=== PATIENT | male | born 1980 | race Caucasian/White ===

== ENCOUNTER 2018-01-20 20:12 | Inpatient (IN) | payer MEDICAID ==
[~2018-01-20] VITALS: Ht 190.5 cm; Wt 113.9 kg
[~2018-01-20 20:12] MED LIST: ASPI-1009 PO; ENOX40SY7 SUBCUT; IBUP-1574 PO; WARF5TAB PO
[2018-01-20] MEDS ORDERED: morphine 4 MG/ML inj SYRINge IV ONE (20:45)
[2018-01-20] MEDS ORDERED: vancomycin inj 1,000 MG in normal saline 250ml IV soln 250 ML IV ONE (20:45)
[2018-01-20] MEDS ORDERED: ondansetron/PF 4mg/2ml inj IV ONE (20:45)
[2018-01-20] MEDS ORDERED: CefTRIAXone/D5W-Rocephin 1gm 50 ML IV ONE (20:45)
[2018-01-20] MEDS ORDERED: normal saline 1000ML IV soln IVB ONE (20:45)
[2018-01-20] MEDS ORDERED: vancomycin/NS 1 GM ADD-VANTAGE 250 ML X 1 DOSE IV ONE (20:55)
[2018-01-20] MEDS ORDERED: temazepam 15mg capsule PO PRN (21:00)
[2018-01-20 21:17] LABS: BASOPHILS % (AUTO) 0.3 % (0-1); EOSINOPHILS # (AUTO) 0.2 X10'3 (0-0.9); EOSINOPHILS % (AUTO) 1.6 % (0-6); HEMATOCRIT 42.6 % (42.0-52.0); HEMOGLOBIN 14.8 g/dl (14.0-17.9); LYMPHOCYTES % (AUTO) 16.8 % (21-51); MEAN CORPUSCULAR HEMOGLOBIN 30.5 PG (27.0-31.0); MEAN CORPUSCULAR HGB CONC 34.8 % (33.0-36.5); MEAN CORPUSCULAR VOLUME 87.8 FL (78-98); MEAN PLATELET VOLUME 7.6 FL (7.4-10.4); MONOCYTES # (AUTO) 0.5 X10'3 (0-0.9); MONOCYTES % (AUTO) 4.5 % (2-12); NEUTROPHILS # (AUTO) 9.1 X10'3 (1.8-7.7); NEUTROPHILS % (AUTO) 76.8 % (42-75); PLATELET COUNT 244 X10'3 (140-440); RED BLOOD COUNT 4.85 X10'6 (4.70-6.10); RED CELL DISTRIBUTION WIDTH 14.1 % (11.5-14.5); WHITE BLOOD COUNT 11.9 X10'3 (4.5-11.0)
[2018-01-20 21:24] LABS: PARTIAL THROMBOPLASTIN TIME 35 SECONDS (22-32); PROTHROMBIN TIME 10.5 SECONDS (9.0-12.0)
[2018-01-20 21:28] LABS: ALANINE AMINOTRANSFERASE 29 U/L (12-78); ALBUMIN 4.2 G/DL (3.4-5.0); ALBUMIN/GLOBULIN RATIO 1.2 (1.1-1.5); ALKALINE PHOSPHATASE 91 IU/L (46-116); ANION GAP 7 (8-16); ASPARTATE AMINO TRANSFERASE 17 U/L (10-37); BILIRUBIN,TOTAL 0.5 MG/DL (0.1-1.0); BLOOD UREA NITROGEN 17 MG/DL (7-18); BUN/CREATININE RATIO 17.7 (5.4-32.0); CALCIUM 9.4 MG/DL (8.5-10.1); CHLORIDE 104 MMOL/L (99-107); CREATININE 0.96 MG/DL (0.60-1.10); GLUCOSE 101 MG/DL (70-104); LIPASE 64 U/L (73-393); SODIUM 141 MMOL/L (135-145); TOTAL PROTEIN 7.8 G/DL (6.4-8.2); eGFR 88 ML/MIN
[2018-01-20] MEDS ORDERED: ENOX100S3 SQ (23:02)
[2018-01-20] MEDS ORDERED: DOXY100C2 PO (23:02)
[2018-01-20] MEDS ORDERED: HYDROmorphone inj. 0.5 MG/0.5 ML DISP.SYRIN IV PRN ×2 (23:30)
[2018-01-20] MEDS ORDERED: HYDROcodone/acetaminophen 5mg/325mg tablet PO PRN (23:30)
[2018-01-20] MEDS ORDERED: acetaminophen 650mg rectal suppository RC PRN (23:30)
[2018-01-20] MEDS ORDERED: ondansetron/PF 4mg/2ml inj IV PRN (23:30)
[2018-01-20] MEDS ORDERED: bisacodyl 10mg suppository rectal RC PRN (23:30)
[2018-01-20] MEDS ORDERED: diphenhydrAMINE 25mg capsule PO PRN (23:30)
[2018-01-20] MEDS ORDERED: mag hydrox/Alum hydrox/simeth 30ml oral suspension PO PRN (23:30)
[2018-01-20] MEDS ORDERED: morphine 4 MG/ML inj SYRINge IV PRN (23:30)
[2018-01-20] MEDS ORDERED: acetaminophen 325mg tablet PO PRN ×2 (23:30)
[2018-01-20] MEDS ORDERED: magnesium hydroxide 30ml (MOM) UD suspension PO PRN (23:30)
[2018-01-20] MEDS ORDERED: diphenhydrAMINE 50 mg/ml inj IV PRN (23:30)
[2018-01-20] MEDS ORDERED: metoclopramide 5 mg/ml inj IV PRN (23:30)
[2018-01-20] MEDS ORDERED: heparin 10,000 units/1 ML INJ IV ONE (23:35)
[2018-01-21] MEDS: normal saline 1000ml 1,000 ML IV SCH ×3 (00:28→11:57)
[2018-01-21 01:00] VITALS: BP 138/77
[2018-01-21 03:39] LABS: BASOPHILS # (AUTO) 0.1 X10'3 (0-0.2); BASOPHILS % (AUTO) 0.7 % (0-1); EOSINOPHILS # (AUTO) 0.3 X10'3 (0-0.9); EOSINOPHILS % (AUTO) 2.6 % (0-6); HEMATOCRIT 40.2 % (42.0-52.0); HEMOGLOBIN 13.7 g/dl (14.0-17.9); LYMPHOCYTES % (AUTO) 26.4 % (21-51); MEAN CORPUSCULAR HEMOGLOBIN 30.4 PG (27.0-31.0); MEAN CORPUSCULAR VOLUME 89.5 FL (78-98); MEAN PLATELET VOLUME 7.7 FL (7.4-10.4); MONOCYTES # (AUTO) 0.7 X10'3 (0-0.9); MONOCYTES % (AUTO) 5.8 % (2-12); NEUTROPHILS # (AUTO) 7.3 X10'3 (1.8-7.7); NEUTROPHILS % (AUTO) 64.5 % (42-75); PLATELET COUNT 220 X10'3 (140-440); RED BLOOD COUNT 4.49 X10'6 (4.70-6.10); WHITE BLOOD COUNT 11.3 X10'3 (4.5-11.0)
[2018-01-21 03:53] LABS: ALANINE AMINOTRANSFERASE 22 U/L (12-78); ALBUMIN 3.2 G/DL (3.4-5.0); ALKALINE PHOSPHATASE 77 IU/L (46-116); ANION GAP 8 (8-16); ASPARTATE AMINO TRANSFERASE 10 U/L (10-37); BILIRUBIN,TOTAL 0.4 MG/DL (0.1-1.0); BLOOD UREA NITROGEN 15 MG/DL (7-18); BUN/CREATININE RATIO 15.5 (5.4-32.0); CALCIUM 8.3 MG/DL (8.5-10.1); CHLORIDE 106 MMOL/L (99-107); CREATININE 0.97 MG/DL (0.60-1.10); GLUCOSE 121 MG/DL (70-104); POTASSIUM 3.4 MMOL/L (3.5-5.1); SODIUM 142 MMOL/L (135-145); TOTAL PROTEIN 6.3 G/DL (6.4-8.2); eGFR 87 ML/MIN
[2018-01-21] MEDS ORDERED: potassium Cl 20 mEq SR tablet PO PRN ×3 (05:35→11:15)
[2018-01-21] MEDS ORDERED: potassium Cl 40MEQ/NS 500ml 500 ML IV PRN ×4 (05:35→11:15)
[2018-01-21 06:45] VITALS: BP 120/77
[2018-01-21] MEDS: CefTRIAXone/D5W-Rocephin 1gm 50 ML IV SCH ×2 (07:07→19:32)
[2018-01-21] MEDS: lactobacillus rhamnosus 10,000 MMU CELLS/CAPSULE PO SCH ×2 (07:07→19:31)
[2018-01-21] MEDS: docusate sod 100mg capsule PO SCH ×2 (07:07→19:31)
[2018-01-21] MEDS: pantoprazole 40mg Tablet.DR PO SCH (07:07)
[2018-01-21] MEDS ORDERED: K and/or MAG REPLACEMENT MC SCH (08:00)
[2018-01-21] MEDS ORDERED: vancomycin/NS 1 GM ADD-VANTAGE 250 ML IV SCH (08:00)
[2018-01-21] MEDS: heparin 10,000 units/1 ML INJ IV PRN (08:24)
[2018-01-21] MEDS: HYDROcodone/acetaminophen 10/325mg tab PO PRN (08:33)
[2018-01-21 09:01] LABS: CLARITY,URINE CLEAR (Clear); COLOR,URINE YELLOW (Yellow); GLUCOSE, URINE NEGATIVE (Neg); KETONES,URINE NEGATIVE (Neg); LEUKOCYTE ESTERASE ,URINE NEGATIVE (Neg); NITRITES, URINE NEGATIVE (Neg); OCCULT BLOOD,URINE NEGATIVE (Neg); PH,URINE 6.5 (4.8-8.0); PROTEIN,URINE NEGATIVE (Neg); UROBILINOGEN,URINE 0.2 E.U/dL (0.2-1.0)
[2018-01-21 09:03] LABS: URINE AMPHETAMINE SCREEN POSITIVE (Neg); URINE BARBITUATE SCREEN NEGATIVE (Neg); URINE BENZODIAZEPINES SCREEN NEGATIVE (Neg); URINE CANNABINOID SCREEN POSITIVE (Neg); URINE COCAINE SCREEN NEGATIVE (Neg); URINE METHADONE SCREEN NEGATIVE (Neg); URINE OPIATE SCREEN POSITIVE (Neg); URINE PHENCYCLIDINE SCREEN NEGATIVE (Neg)
[2018-01-21 09:21] LABS: UA COLLECTION TYPE NON-SPECIFIED
[2018-01-21 10:58] VITALS: BP 118/78
[2018-01-21] MEDS ORDERED: magnesium Cl slow-release 64mg tablet PO PRN (11:15)
[2018-01-21] MEDS ORDERED: magnesium 4gm in 100ml NS 100 ML IV PRN (11:15)
[2018-01-21] MEDS ORDERED: magnesium/D5W IVPB 100 ML IV PRN (11:15)
[2018-01-21] MEDS: potassium Cl 20 mEq SR tablet PO PRN ×2 (11:58→16:02)
[2018-01-21] MEDS ORDERED: OXYC-511 PO (14:28)
[2018-01-21] MEDS: morphine 4 MG/ML inj SYRINge IV PRN ×2 (15:24→19:31)
[2018-01-21 20:00] VITALS: BP 118/78
[2018-01-21] MEDS: nicotine 21mg patch - 24 hr TD SCH (20:11)
[2018-01-22] VITALS: BP 123/81
[2018-01-22] MEDS: normal saline 1000ml 1,000 ML IV SCH ×2 (00:02→15:40)
[2018-01-22] MEDS: morphine 4 MG/ML inj SYRINge IV PRN ×3 (02:38→15:46)
[2018-01-22 07:00] VITALS: BP 130/72
[2018-01-22] MEDS ORDERED: VANCOMYCIN LEVEL IV NR (07:30)
[2018-01-22] MEDS: pantoprazole 40mg Tablet.DR PO SCH (07:46)
[2018-01-22] MEDS: lactobacillus rhamnosus 10,000 MMU CELLS/CAPSULE PO SCH ×2 (07:46→20:27)
[2018-01-22] MEDS: docusate sod 100mg capsule PO SCH ×2 (07:46→20:26)
[2018-01-22] MEDS: CefTRIAXone/D5W-Rocephin 1gm 50 ML IV SCH ×2 (07:47→20:38)
[2018-01-22 08:31] LABS: BASOPHILS % (AUTO) 0.5 % (0-1); EOSINOPHILS # (AUTO) 0.3 X10'3 (0-0.9); HEMATOCRIT 41.3 % (42.0-52.0); LYMPHOCYTES # (AUTO) 2.1 X10'3 (1.1-4.8); LYMPHOCYTES % (AUTO) 23.3 % (21-51); MEAN CORPUSCULAR HGB CONC 33.9 % (33.0-36.5); MEAN CORPUSCULAR VOLUME 88.5 FL (78-98); MEAN PLATELET VOLUME 7.9 FL (7.4-10.4); MONOCYTES # (AUTO) 0.6 X10'3 (0-0.9); MONOCYTES % (AUTO) 6.4 % (2-12); NEUTROPHILS % (AUTO) 66.8 % (42-75); PLATELET COUNT 232 X10'3 (140-440); RED BLOOD COUNT 4.66 X10'6 (4.70-6.10); RED CELL DISTRIBUTION WIDTH 14.4 % (11.5-14.5)
[2018-01-22 08:37] LABS: ALANINE AMINOTRANSFERASE 25 U/L (12-78); ALBUMIN 3.3 G/DL (3.4-5.0); ALKALINE PHOSPHATASE 80 IU/L (46-116); ANION GAP 6 (8-16); ASPARTATE AMINO TRANSFERASE 15 U/L (10-37); BILIRUBIN,TOTAL 0.3 MG/DL (0.1-1.0); BLOOD UREA NITROGEN 11 MG/DL (7-18); BUN/CREATININE RATIO 13.1 (5.4-32.0); CALCIUM 8.8 MG/DL (8.5-10.1); CHLORIDE 103 MMOL/L (99-107); CREATININE 0.84 MG/DL (0.60-1.10); GLUCOSE 102 MG/DL (70-104); MAGNESIUM 1.8 MG/DL (1.5-2.4); POTASSIUM 4.2 MMOL/L (3.5-5.1); SODIUM 139 MMOL/L (135-145); TOTAL CARBON DIOXIDE 29.6 MMOL/L (24-32); TOTAL PROTEIN 6.7 G/DL (6.4-8.2); VANCOMYCIN,TROUGH 16.6 UG/ML (6.0-14.0); eGFR > 90 ML/MIN
[2018-01-22 11:48] VITALS: BP 141/84
[2018-01-22 20:00] VITALS: BP 139/88
[2018-01-22] MEDS: nicotine 21mg patch - 24 hr TD SCH (20:36)
[2018-01-22] MEDS: HYDROcodone/acetaminophen 10/325mg tab PO PRN (22:23)
[2018-01-23] VITALS: BP 146/80
[2018-01-23] MEDS: normal saline 1000ml 1,000 ML IV SCH (03:06)
[2018-01-23 07:00] VITALS: BP 114/74
[2018-01-23] MEDS: CefTRIAXone/D5W-Rocephin 1gm 50 ML IV SCH (07:29)
[2018-01-23] MEDS: HYDROcodone/acetaminophen 10/325mg tab PO PRN (07:29)
[2018-01-23] MEDS: lactobacillus rhamnosus 10,000 MMU CELLS/CAPSULE PO SCH (07:29)
[2018-01-23] MEDS: docusate sod 100mg capsule PO SCH (07:29)
[2018-01-23] MEDS: pantoprazole 40mg Tablet.DR PO SCH (07:30)
[2018-01-23] MEDS: nicotine 21mg patch - 24 hr TD SCH (07:30)
[2018-01-23 08:07] LABS: BASOPHILS % (AUTO) 0.5 % (0-1); EOSINOPHILS # (AUTO) 0.2 X10'3 (0-0.9); EOSINOPHILS % (AUTO) 2.5 % (0-6); HEMATOCRIT 40.9 % (42.0-52.0); HEMOGLOBIN 13.9 g/dl (14.0-17.9); LYMPHOCYTES # (AUTO) 1.8 X10'3 (1.1-4.8); LYMPHOCYTES % (AUTO) 19.5 % (21-51); MEAN CORPUSCULAR HGB CONC 33.9 % (33.0-36.5); MEAN CORPUSCULAR VOLUME 88.4 FL (78-98); MEAN PLATELET VOLUME 7.7 FL (7.4-10.4); MONOCYTES # (AUTO) 0.6 X10'3 (0-0.9); MONOCYTES % (AUTO) 6.3 % (2-12); NEUTROPHILS # (AUTO) 6.5 X10'3 (1.8-7.7); NEUTROPHILS % (AUTO) 71.2 % (42-75); PLATELET COUNT 243 X10'3 (140-440); RED BLOOD COUNT 4.62 X10'6 (4.70-6.10); RED CELL DISTRIBUTION WIDTH 13.9 % (11.5-14.5); WHITE BLOOD COUNT 9.1 X10'3 (4.5-11.0)
[2018-01-23 08:16] LABS: ALANINE AMINOTRANSFERASE 31 U/L (12-78); ALBUMIN 3.2 G/DL (3.4-5.0); ALBUMIN/GLOBULIN RATIO 0.9 (1.1-1.5); ALKALINE PHOSPHATASE 73 IU/L (46-116); ANION GAP 6 (8-16); ASPARTATE AMINO TRANSFERASE 19 U/L (10-37); BILIRUBIN,TOTAL 0.3 MG/DL (0.1-1.0); BLOOD UREA NITROGEN 14 MG/DL (7-18); BUN/CREATININE RATIO 15.9 (5.4-32.0); CALCIUM 8.7 MG/DL (8.5-10.1); CHLORIDE 102 MMOL/L (99-107); CREATININE 0.88 MG/DL (0.60-1.10); GLUCOSE 98 MG/DL (70-104); MAGNESIUM 1.9 MG/DL (1.5-2.4); POTASSIUM 4.2 MMOL/L (3.5-5.1); SODIUM 138 MMOL/L (135-145); TOTAL CARBON DIOXIDE 30.2 MMOL/L (24-32); TOTAL PROTEIN 6.9 G/DL (6.4-8.2); eGFR > 90 ML/MIN
[2018-01-23] MEDS: heparin 10,000 units/1 ML INJ IV PRN (08:41)
== END 2018-01-23 11:59 | disposition home or self-care (01) | DRG 197 ==
LOC: ER 20:12 → ED HOLD 23:28 → EDBEDREQ 23:55 → SUR 3N 01-21 00:36
PROVIDERS: ADMIT Family Medicine; ATTEND Internal Medicine
DX: I82.412 Acute embolism and thrombosis of left femoral vein (principal); D68.9 Coagulation defect, unspecified; I10 Essential (primary) hypertension; E87.6 Hypokalemia; F17.210 Nicotine dependence, cigarettes, uncomplicated; I83.93 Asymptomatic varicose veins of bilateral lower extremities; F15.10 Other stimulant abuse, uncomplicated; F12.10 Cannabis abuse, uncomplicated; I82.502 Chronic embolism and thrombosis of unspecified deep veins of left lower extremity; L03.116 Cellulitis of left lower limb; Z86.711 Personal history of pulmonary embolism; Z88.1 Allergy status to other antibiotic agents; Z88.8 Allergy status to other drugs, medicaments and biological substances; Z79.899 Other long term (current) drug therapy; Z91.19 Patient's noncompliance with other medical treatment and regimen; Z71.51 Drug abuse counseling and surveillance of drug abuser
CPT/HCPCS: 36415; 71045; 73590; 80053; 80202; 80305; 81003; 83605; 83690; 83735; 83880; 84484; 85025; 85610; 85730; 87040; 87070; 93971; 96365; 96366; 96367; 96375; 99285; J0696; J1644; J2270; J2405; J3370; J7030